=== PATIENT | male | born 1985 | race Asian ===

== ENCOUNTER 2018-03-09 20:39 | Emergency (ER) | payer BC, MEDICAID ==
[~2018-03-09] VITALS: Ht 175.3 cm; Wt 82.7 kg
[2018-03-09 20:45] VITALS: BP 106/61; Ht 175.3 cm; Wt 82.7 kg
== END 2018-03-09 23:21 | disposition home or self-care (01) ==
LOC: ED 20:39
DX: J06.9 Acute upper respiratory infection, unspecified (principal)
CPT/HCPCS: J7613